=== PATIENT | male | born 1965 | race Caucasian/White ===

== ENCOUNTER 2019-07-31 12:57 | Outpatient (CLI) | payer BC, SELFPAY ==
[2019-07-31 13:49] LABS: Alanine Aminotransferase 22 U/L (4-50); Albumin Level 4.3 g/dL (3.5-5.1); Alkaline Phosphatase 87 U/L (38-126); Aspartate Amino Transferase 29 U/L (17-59); Bilirubin,Total 0.5 mg/dL (0.2-1.3); Blood Urea Nitrogen 20 mg/dL (9-20); Calcium 9.3 mg/dL (8.4-10.2); Carbon Dioxide 26 mmol/L (22-30); Chloride 98 mmol/L (98-107); Estimated Glomerular Filt Rate > 60; Glucose 114 mg/dL (75-110); Potassium 4.1 mmol/L (3.4-5.0); Sodium 133 mmol/L (137-145)
== END 2019-07-31 12:58 | disposition home or self-care (01) ==
LOC: ANHLAB 13:00
PROVIDERS: PCP Internal Medicine; Visit Provider Nurse Practitioner
DX: R19.7 Diarrhea, unspecified (principal)
CPT/HCPCS: 36415; 80053

== ENCOUNTER 2019-08-01 14:00 | Outpatient (CLI) | payer BC, SELFPAY ==
[2019-08-01 15:46] LABS: IFOB Positive Control Positive; Immunochemical Fecal Occult Bl Positive (N)
== END 2019-08-01 14:01 | disposition home or self-care (01) ==
PROVIDERS: PCP Internal Medicine; Visit Provider Nurse Practitioner
DX: R19.7 Diarrhea, unspecified (principal)
CPT/HCPCS: 82274; 87045; 87046; 87186; 87324; 87427

== ENCOUNTER 2019-12-09 09:32 | Outpatient (CLI) | payer BC, SELFPAY ==
[2019-12-09 10:09] LABS: Anion Gap 6 mmol/L (8-16); Blood Urea Nitrogen 18 mg/dL (9-20); Calcium 9.2 mg/dL (8.4-10.2); Carbon Dioxide 30 mmol/L (22-30); Chloride 101 mmol/L (98-107); Cholesterol 209 mg/dL (0-200); Estimated Glomerular Filt Rate > 60; Glucose 103 mg/dL (75-110); HDL Direct 42 mg/dL; Potassium 4.4 mmol/L (3.4-5.0); Sodium 137 mmol/L (137-145); Triglycerides 119 mg/dL (<150); Uric Acid 3.3 mg/dL (3.5-8.5)
[2019-12-09 10:20] LABS: LDL Cholesterol Direct 143 mg/dL
[2019-12-09 10:38] LABS: Prostate Specific Antigen 0.6 ng/mL (< OR = 4.0)
== END 2019-12-09 09:33 | disposition home or self-care (01) ==
PROVIDERS: PCP Internal Medicine; Visit Provider Internal Medicine
DX: M10.9 Gout, unspecified (principal); F10.10 Alcohol abuse, uncomplicated; Z12.5 Encounter for screening for malignant neoplasm of prostate; E78.5 Hyperlipidemia, unspecified; I10 Essential (primary) hypertension
CPT/HCPCS: 36415; 80048; 80061; 84153; 84550; G0103

== ENCOUNTER 2019-12-09 09:37 | Outpatient (CLI) | payer BC, SELFPAY ==
[2019-12-09 10:09] LABS: Alanine Aminotransferase 31 U/L (4-50); Aspartate Amino Transferase 32 U/L (17-59)
== END 2019-12-09 09:38 | disposition home or self-care (01) ==
PROVIDERS: PCP Internal Medicine
DX: Z79.899 Other long term (current) drug therapy (principal)
CPT/HCPCS: 36415; 84450; 84460

== ENCOUNTER 2019-12-31 09:55 | Outpatient (CLI) | payer BC, SELFPAY ==
[2019-12-31 11:05] LABS: Alanine Aminotransferase 22 U/L (4-50); Aspartate Amino Transferase 28 U/L (17-59)
== END 2019-12-31 09:56 | disposition home or self-care (01) ==
PROVIDERS: PCP Internal Medicine
DX: Z79.899 Other long term (current) drug therapy (principal)
CPT/HCPCS: 36415; 84450; 84460

== ENCOUNTER 2020-02-14 00:23 | Outpatient (CLI) | payer BC, SELFPAY ==
[2020-02-14 21:19] LABS: SARS-CoV-2 RNA PCR Negative
== END 2020-02-14 00:24 | disposition home or self-care (01) ==
LOC: ANHCOVIDDT 00:23
PROVIDERS: PCP Internal Medicine; Visit Provider Internal Medicine Gastroenterology
DX: Z01.812 Encounter for preprocedural laboratory examination (principal); Z20.828 Contact with and (suspected) exposure to other viral communicable diseases
CPT/HCPCS: 87635; C9803; U0003

== ENCOUNTER 2020-02-17 00:05 | Day surgery (SDC) | payer BC, SELFPAY ==
[2020-02-11 10:44] VITALS: BMI 27.4
--- NOTE | 2020-02-16 13:17 | WPDANESEPPF ---
Anes - Initial Pre Proc Eval Procedure: Operation Date: 02/17/20 10:15 Proposed Procedures p Screening Colonoscopy - Tay Rollins MD Date/Time: 02/16/20 13:17 Surgeon: Tay Rollins MD Pre Op Diagnosis: Family Hx Colon Ca Patient Data Age: 54 Gender: M Height: 1.7 m Weight: 79.5 kg Allergies Allergy/AdvReac Type Severity Reaction Status Date / Time cephalexin Allergy Intermediate HIVES Verified 02/17/20 09:02 Home Medications Medication Instructions Recorded Confirmed Type buspirone 10 mg tablet 10 mg PO DAILY 06/19/19 02/11/20 History lamotrigine 200 mg tablet 200 mg PO BID 06/19/19 02/11/20 History allopurinol 300 mg tablet 300 mg PO DAILY #90 tablet 09/29/19 02/11/20 Rx folic acid 1 mg tablet 1 mg PO DAILY #30 tablet 11/06/19 02/11/20 Rx thiamine HCl (vitamin B1) 100 mg 100 mg PO DAILY 11/06/19 02/11/20 History tablet naltrexone 50 mg tablet 50 mg PO DAILY 01/06/20 02/11/20 History peg 3350-electrolytes 236 240 ml PO Q10M #4000 ml 01/19/20 Rx gram-22.74 gram-6.74 gram-5.86 gram solution lisinopril 10 mg tablet 10 mg PO DAILY #90 tablet 02/16/20 Rx Patient hx anesthesia problems: none Family hx anesthesia problems: none PMFSH Past Medical History Medical History (Updated 02/16/20 @ 13:17 by Alejandro Pearson DO) Anxiety Bipolar disorder Essential (primary) hypertension Family history of colon cancer in father GERD without esophagitis Recovering alcoholic Screening for colon cancer Family History Family History Sibling Family history of tuberculosis Family history of alcoholism Mother Family history of mental disorder Father Family history of alcoholism Family history of chronic obstructive pulmonary disease Carcinoma of colon Patient's father is Social History Social History Smoking status: Never smoker Alcohol intake: former Alcohol use details: HAVEN'T HAD A DRINK IN 120 DAYS, HEAVY DRINKER IN PAST Substance use: current Substance use type: methamphetamine Last use: 2 WEEKS AGO Living arrangements: with family Spiritual care concerns: No Anes - Eval Final PreProcedure Day of Procedure 02/16/20 13:17 Patient weight: overweight Heart: regular rate and rhythm Lungs: clear to auscultation and normal air movement Airway: Mallampati scale class II Neurological: alert and oriented Last oral intake: >/= 8 hours ASA classification: III Emergent: no Anesthetic plan: proceed Anesthesia type and monitoring: general GIVS and standard monitoring Informed Consent: The patient's anesthetic plan and its attendant risks and benefits were discussed with the patient/family/POA. Questions were solicited and answers provided to the satisfaction of the patient/family/POA.
[2020-02-17 09:03] VITALS: BP 114/71; PULSE 86; RESP 16; TEMP 36.3; O2SAT 98; BMI 26.8
[2020-02-17] MEDS: LACTATED RINGERS 1,000 ML 150 ML IV CONT (09:14)
--- NOTE | 2020-02-17 10:19 | PM.HPGS ---
History of Present Illness History of Present Illness Consent: Risks, benefits, and alternatives have been discussed and questions answered. Patient agrees to proceed with procedure. Chief complaint: Family Hx Colon Ca Narrative: Elizabeth Martinez is a 54 year old male with last colonoscopy 5 years ago, father with colon cancer. Review of Systems Constitutional: Constitutional: Denies headache(s) and Denies weakness Eyes: Eyes: Denies blurry vision ENT: Reports Normal hearing present, Denies headache(s) and Denies neck pain Cardiovascular: Cardiovascular: Denies chest pain and Denies dyspnea Respiratory: Respiratory: Denies dyspnea Gastrointestinal: Gastrointestinal: Reports no additional gastrointestinal complaints Genitourinary: Genitourinary: Denies dysuria Musculoskeletal: Musculoskeletal: Denies neck pain Integumentary/Breasts: Skin/Breast: Denies dry skin Neurologic: Reports Normal hearing present, Denies headache(s) and Denies weakness Psychiatric: Psychiatric: Denies anxiety Endocrine: Endocrine: Denies change in body appearance Hematologic/Lymphatic: Hematologic/Lymphatic: Denies easy bleeding Allergic/Immunologic: Allergic/Immunologic: Denies urticaria PMF Past Medical History Medical History (Updated 02/16/20 @ 13:17 by Alejandro Pearson DO) Anxiety Bipolar disorder Essential (primary) hypertension Family history of colon cancer in father GERD without esophagitis Recovering alcoholic Screening for colon cancer Family History Family History Sibling Family history of tuberculosis Family history of alcoholism Mother Family history of mental disorder Father Family history of alcoholism Family history of chronic obstructive pulmonary disease Carcinoma of colon Patient's father is Social History Social History Smoking status: Never smoker Alcohol intake: former Alcohol use details: HAVEN'T HAD A DRINK IN 120 DAYS, HEAVY DRINKER IN PAST Substance use: current Substance use type: methamphetamine Last use: 2 WEEKS AGO Living arrangements: with family Spiritual care concerns: No Meds Home Medications and Allergies Home Medications Medication Instructions Recorded Confirmed Type buspirone 10 mg tablet 10 mg PO DAILY 06/19/19 02/11/20 History lamotrigine 200 mg tablet 200 mg PO BID 06/19/19 02/11/20 History allopurinol 300 mg tablet 300 mg PO DAILY #90 tablet 09/29/19 02/11/20 Rx folic acid 1 mg tablet 1 mg PO DAILY #30 tablet 11/06/19 02/11/20 Rx thiamine HCl (vitamin B1) 100 mg 100 mg PO DAILY 11/06/19 02/11/20 History tablet naltrexone 50 mg tablet 50 mg PO DAILY 01/06/20 02/11/20 History peg 3350-electrolytes 236 240 ml PO Q10M #4000 ml 01/19/20 Rx gram-22.74 gram-6.74 gram-5.86 gram solution lisinopril 10 mg tablet 10 mg PO DAILY #90 tablet 02/16/20 Rx Allergies Allergy/AdvReac Type Severity Reaction Status Date / Time cephalexin Allergy Intermediate HIVES Verified 02/17/20 09:02 Vital Signs Vital Signs - 24 hr 02/17/20 09:03 Temperature 97.4 F L Pulse Rate 86 Respiratory Rate 16 Blood Pressure 114/71 Pulse Oximetry 98 Exam Const: General: comfortable and no acute distress HENMT: General nose exam: Normal nares present Eyes: General: appearance normal, both eyes and all related structures Neck: Neck: no JVD Resp: Auscultation: clear to auscultation bilaterally Cardio: Rate: regular rate Rhythm: regular rhythm GI: Inspection: non-distended GI Palp: Yes Soft to palpation Skin: General skin exam: normal color Neuro: General: gait normal Speech: normal speech Extrem: General: normal to inspection Psych: Mental Status: mental status grossly normal Assessment and Plan Assessment and plan (1) Family history of colon cancer in father: Code(s): Z80.0 - Family h
[2020-02-17 10:35] VITALS: BP 85/57; PULSE 69; RESP 20; O2SAT 97
[2020-02-17 10:45] VITALS: BP 99/59; PULSE 64; RESP 20; O2SAT 99
[2020-02-17 10:55] VITALS: BP 105/68; PULSE 61; RESP 18; O2SAT 100
== END 2020-02-17 11:14 | disposition home or self-care (01) ==
PROVIDERS: PCP Internal Medicine; Visit Provider Internal Medicine Gastroenterology
PROC: 0DJD8ZZ Inspection of Lower Intestinal Tract, Via Natural or Artificial Opening Endoscopic (ICD-10-PCS; CPT 45378; principal; 2020-02-17 10:15)
DX: Z12.11 Encounter for screening for malignant neoplasm of colon (principal); K64.8 Other hemorrhoids; I10 Essential (primary) hypertension; K21.9 Gastro-esophageal reflux disease without esophagitis; F41.9 Anxiety disorder, unspecified; F31.9 Bipolar disorder, unspecified; F10.21 Alcohol dependence, in remission
CPT/HCPCS: 45378; J2704; J7120

== ENCOUNTER 2020-06-29 10:14 | Outpatient (CLI) | payer OTHER, SELFPAY ==
[2020-06-29 10:44] LABS: Alanine Aminotransferase 22 U/L (4-50); Albumin Level 4.2 g/dL (3.5-5.1); Alkaline Phosphatase 62 U/L (38-126); Anion Gap 5 mmol/L (8-16); Aspartate Amino Transferase 31 U/L (17-59); Bilirubin,Total 0.8 mg/dL (0.2-1.3); Blood Urea Nitrogen 21 mg/dL (9-20); Calcium 8.8 mg/dL (8.4-10.2); Carbon Dioxide 31 mmol/L (22-30); Chloride 105 mmol/L (98-107); Cholesterol 189 mg/dL (0-200); Estimated Glomerular Filt Rate > 60; Glucose 100 mg/dL (75-110); HDL Direct 40 mg/dL; Potassium 4.2 mmol/L (3.4-5.0); Sodium 141 mmol/L (137-145); Triglycerides 71 mg/dL (<150); Uric Acid 3.1 mg/dL (3.5-8.5)
[2020-06-29 10:52] LABS: LDL Cholesterol Direct 123 mg/dL
== END 2020-06-29 10:15 | disposition home or self-care (01) ==
PROVIDERS: PCP Internal Medicine; Visit Provider Nurse Practitioner
DX: E78.00 Pure hypercholesterolemia, unspecified (principal); M10.9 Gout, unspecified
CPT/HCPCS: 36415; 80053; 80061; 84550

== ENCOUNTER 2021-01-07 10:51 | Outpatient (CLI) | payer OTHER, SELFPAY ==
[2021-01-07 11:44] LABS: Anion Gap 3 mmol/L (8-16); Blood Urea Nitrogen 21 mg/dL (9-20); Calcium 9.7 mg/dL (8.4-10.2); Carbon Dioxide 34 mmol/L (22-30); Chloride 103 mmol/L (98-107); Cholesterol 177 mg/dL (0-200); Estimated Glomerular Filt Rate > 60; Glucose 99 mg/dL (65-110); HDL Direct 45 mg/dL; Potassium 4.8 mmol/L (3.4-5.0); Sodium 140 mmol/L (137-145); Triglycerides 69 mg/dL (<150)
[2021-01-07 11:55] LABS: LDL Cholesterol Direct 100 mg/dL
[2021-01-07 12:14] LABS: Prostate Specific Antigen 0.6 ng/mL (< OR = 4.0)
== END 2021-01-07 10:52 | disposition home or self-care (01) ==
LOC: ANHLAB 10:54
PROVIDERS: PCP Internal Medicine; Visit Provider Internal Medicine
DX: Z12.5 Encounter for screening for malignant neoplasm of prostate (principal); I10 Essential (primary) hypertension; E78.5 Hyperlipidemia, unspecified; Z79.899 Other long term (current) drug therapy
CPT/HCPCS: 36415; 80048; 80061; 84153; G0103

== ENCOUNTER 2022-06-20 09:29 | Outpatient (CLI) | payer OTHER, SELFPAY ==
[2022-06-20 10:33] LABS: Alanine Aminotransferase 29 U/L (6-50); Albumin Level 4.7 g/dL (3.5-5.1); Alkaline Phosphatase 68 U/L (38-126); Anion Gap 5 mmol/L (8-16); Aspartate Amino Transferase 30 U/L (17-59); Blood Urea Nitrogen 21 mg/dL (9-20); Calcium 9.1 mg/dL (8.4-10.2); Carbon Dioxide 31 mmol/L (22-30); Chloride 104 mmol/L (98-107); Cholesterol 195 mg/dL (0-200); Estimated Glomerular Filt Rate > 60; Glucose 92 mg/dL (65-110); HDL Direct 40 mg/dL; Potassium 4.5 mmol/L (3.4-5.0); Sodium 140 mmol/L (137-145); Triglycerides 79 mg/dL (<150); Uric Acid 4.5 mg/dL (3.5-8.5)
[2022-06-20 10:44] LABS: LDL Cholesterol Direct 130 mg/dL
[2022-06-20 10:53] LABS: Prostate Specific Antigen 0.4 ng/mL (< OR = 4.0)
== END 2022-06-20 09:30 | disposition home or self-care (01) ==
LOC: ANHLAB 09:30
PROVIDERS: PCP Internal Medicine; Visit Provider Nurse Practitioner
DX: Z00.00 Encounter for general adult medical examination without abnormal findings (principal); Z87.39 Personal history of other diseases of the musculoskeletal system and connective tissue; Z12.5 Encounter for screening for malignant neoplasm of prostate; E78.5 Hyperlipidemia, unspecified
CPT/HCPCS: 36415; 80053; 80061; 84153; 84443; 84550; G0103

== ENCOUNTER 2023-07-10 10:38 | Outpatient (CLI) | payer OTHER, SELFPAY ==
[2023-07-10 11:28] LABS: Basophils Absolute Auto 0.1 K/mm3 (0.0-0.1); Basophils Percent Auto 1.2 % (0.2-1.2); Eosinophils Absolute Auto 0.2 K/mm3 (0-0.3); Eosinophils Percent Auto 2.6 % (0-4.4); Hematocrit 44.7 % (42.0-52.0); Hemoglobin 14.6 g/dL (14.0-18.0); Immature Granulocyte Absolute 0.03 K/mm3 (0.00-0.031); Immature Granulocyte Percent A 0.4 % (0-0.5); Lymphocytes Absolute Auto 1.92 K/mm3 (0.9-3.2); Lymphocytes Percent Auto 26.6 % (18.3-44.2); Mean Corpuscular HGB Conc 32.7 g/dl (32-36); Mean Corpuscular Hemoglobin 30.6 pg (26-34); Mean Corpuscular Volume 93.7 fl (80-100); Mean Platelet Volume 9.1 fl (7.4-10.4); Monocytes Absolute Auto 0.6 K/mm3 (0.1-0.6); Monocytes Percent Auto 8.6 % (2.6-8.5); Neutrophils Absolute Auto 4.4 K/mm3 (1.3-6.7); Neutrophils Percent Auto 60.6 % (45.5-73.1); Platelet Count Result 223 k/mm3 (150-375); Red Blood Count 4.77 M/mm3 (4.6-6.20); Red Cell Distribution Width 13.6 % (11.5-14.5); White Blood Count 7.2 K/mm3 (4.5-10.0)
[2023-07-10 11:44] LABS: Alanine Aminotransferase 20 U/L (6-50); Albumin Level 4.4 g/dL (3.5-5.1); Alkaline Phosphatase 61 U/L (38-126); Anion Gap 5 mmol/L (4-12); Aspartate Amino Transferase 26 U/L (17-59); Bilirubin,Total 0.8 mg/dL (0.2-1.3); Blood Urea Nitrogen 23 mg/dL (9-20); Calcium 9.1 mg/dL (8.4-10.2); Carbon Dioxide 28 mmol/L (22-30); Chloride 107 mmol/L (98-107); Estimated Glomerular Filt Rate > 60; Glucose 102 mg/dL (65-110); Potassium 4.5 mmol/L (3.4-5.0); Sodium 140 mmol/L (137-145)
[2023-07-10 12:10] LABS: Prostate Specific Antigen 0.5 ng/mL (< OR = 4.0)
== END 2023-07-10 10:39 | disposition home or self-care (01) ==
LOC: ANHLAB 10:40
PROVIDERS: PCP Nurse Practitioner Family; Visit Provider Nurse Practitioner Family
DX: Z12.5 Encounter for screening for malignant neoplasm of prostate (principal); E51.9 Thiamine deficiency, unspecified; E78.00 Pure hypercholesterolemia, unspecified; F10.21 Alcohol dependence, in remission; F31.61 Bipolar disorder, current episode mixed, mild; I10 Essential (primary) hypertension
CPT/HCPCS: 36415; 80053; 84153; 85025; G0103

== ENCOUNTER 2024-07-14 09:28 | Outpatient (CLI) | payer OTHER, SELFPAY ==
[2024-07-14 09:57] LABS: Basophils Absolute Auto 0.1 K/mm3 (0.0-0.1); Basophils Percent Auto 0.9 % (0.2-1.2); Eosinophils Absolute Auto 0.2 K/mm3 (0-0.3); Eosinophils Percent Auto 3.3 % (0-4.4); Hematocrit 44.3 % (42.0-52.0); Hemoglobin 14.8 g/dL (14.0-18.0); Immature Granulocyte Absolute 0.02 K/mm3 (0.00-0.031); Immature Granulocyte Percent A 0.3 % (0-0.5); Lymphocytes Absolute Auto 1.89 K/mm3 (0.9-3.2); Lymphocytes Percent Auto 29.6 % (18.3-44.2); Mean Corpuscular HGB Conc 33.4 g/dl (32-36); Mean Corpuscular Hemoglobin 30.7 pg (26-34); Mean Corpuscular Volume 91.9 fl (80-100); Monocytes Absolute Auto 0.6 K/mm3 (0.1-0.6); Monocytes Percent Auto 9.4 % (2.6-8.5); Neutrophils Absolute Auto 3.6 K/mm3 (1.3-6.7); Neutrophils Percent Auto 56.5 % (45.5-73.1); Platelet Count Result 213 k/mm3 (150-375); Red Blood Count 4.82 M/mm3 (4.6-6.20); Red Cell Distribution Width 13.2 % (11.5-14.5); White Blood Count 6.4 K/mm3 (4.5-10.0)
[2024-07-14 10:12] LABS: Alanine Aminotransferase 22 U/L (6-50); Albumin Level 4.2 g/dL (3.5-5.1); Alkaline Phosphatase 62 U/L (38-126); Anion Gap 6 mmol/L (4-12); Aspartate Amino Transferase 24 U/L (17-59); Bilirubin,Total 0.7 mg/dL (0.2-1.3); Blood Urea Nitrogen 19 mg/dL (9-20); Carbon Dioxide 27 mmol/L (22-30); Chloride 105 mmol/L (98-107); Cholesterol 190 mg/dL (0-200); Estimated Glomerular Filt Rate > 60; Glucose 102 mg/dL (65-110); HDL Direct 38 mg/dL; Hemoglobin A1C 5.8 % (<5.7); Potassium 4.4 mmol/L (3.4-5.0); Sodium 138 mmol/L (137-145); Triglycerides 106 mg/dL (<150); Uric Acid 2.7 mg/dL (3.5-8.5)
--- OUTSIDE RECORDS SUMMARY | 2024-07-14 10:15 | XMS_ITS | Clinical Summary ---
Author Organization [facility] Address [address] [place] [address] Care Team Providers Care Shiatsu Therapist Name Role Phone Eloy Carpio MD Unavailable [phone] Celso Mitchell MD Unavailable [phone] Source Comments [facility],non-owned Affiliates and Associated Physician Practices is amultiple site organization consisting of ambulatory clinics and hospital sitesin [place], [place], [place] and [place]. This disclosure is being madepursuant to the Care Everywhere program and may not contain all information available regarding this patient. Last updated 17.[facility] Allergies No known active allergies Medications * Be aware that medications may not be up to date on this document. Alwaysverify current medications with the patient. diclofenac sodium (VOLTAREN) 75 MG tablet Take 1 Tab by mouth 2 times daily. 60 Tab 4 08/17/2010 Active diazepam (VALIUM) 2 MG tablet Take 1 Tab by mouth 3 times daily. 90 Tab 3 08/17/2010 Active CITALOPRAM & DIET MANAGE PROD PO daily. Active ARIPiprazole (ABILIFY PO) daily. 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 Gender Identity Not on file Sexual Orientation Not on file Last Filed Vital Signs Vital Sign Reading Time Taken Comments Blood Pressure - - Pulse - - Temperature - - Respiratory Rate - - Oxygen Saturation - - Inhaled Oxygen Concentration - - Weight 80.3 kg (177 lb) 09/19/2010 11:07 AM CDT Height 170.2 cm (5' 7 ) 09/19/2010 11:07 AM CDT Body Mass Index 27.72 09/19/2010 11:07 AM CDT Plan of Treatment Health Maintenance Due Date Last Done Comments COLOGUARD (AGES 45-75) - COL ON CA SCREENING 1964 COLON MONITORING 1964 COLONOSCOPY - COLON CA SCREENING 1964 CT COLONOGRAPHY - COLON CA SCREENING 1964 Colorectal Cancer Screening 1964 FIT - COLON CA SCREENING 1964 FLEX SIG - COLON CA SCREENING 1964 LIPID TESTING 1964 HIV SCREENING 10/07/1979 HEPATITIS C SCREENING 10/02/1982 DTAP/TDAP/TD VACCINES (1 - Tdap) 10/07/1983 HEPATITIS B VACCINE (1 of 3 - 19+ 3-dose series) 10/07/1983 PNEUMOCOCCAL VACCINE 50+ (1 of 1 - PCV) 2014 ZOSTER VACCINE (1 of 2) 2014 COVID-19 VACCINE (1 - 2023-2 5 season) 2023 DEPRESSION SCREENING 04/02/2024 INFLUENZA VACCINE (Season Ended) 2024 HIB VACCINE Aged Out No longer eligi ble based on patient's age to complete this topic HPV VACCINE Aged Out No longer eligi ble based on patient's age to complete this topic MENINGOCOCCAL (Group B) VACC INE SHARED DECISION-MAKING Aged Out No longer eligibl e based on patient's age to complete this topic MENINGOCOCCAL GROUPS A/C/Y/W VACCINE Aged Out No longer eligible b ased on patient's age to complete this topic Care Teams Shiatsu Therapist Relationship Specialty Start Date End Date Eloy Carpio MD Internal Medicine 08/17/10 Celso Mitchell MD Referring Physician Internal Medicine 08/17/10
--- OUTSIDE RECORDS SUMMARY | 2024-07-14 10:15 | XMS_ITS | Clinical Summary ---
Author Organization [facility] Address [address] [place] [address] Care Team Providers Care Hadoop Infrastructure Architect Name Role Phone Unavailable Primary Care Provider Unavailabl e Social History Tobacco Use Types Packs/Day Years Used Date Smoking Tobacco: Never Assessed Sex and Gender Information Value Date Recorded Sex Assigned at Not on file Legal Sex Male 5:42 PM CDT Gender Identity Not on file Sexual Orientation Not on file Plan of Treatment Health Maintenance Due Date Last Done Comments Colorectal Cancer Screening Colonoscopy (10 Years) 1964 Annual Physical 10/07/1967 Hepatitis C 1982 DTaP, Tdap and Td Vaccines ( 1 - Tdap) 10/07/1983 Zoster Vaccines (1 of 2) 2014 COVID-19 Vaccine (2023-2 5 season) 2023 Meningococcal B Vaccine Aged Out No l onger eligible based on patient's age to complete this topic Meningococcal Vaccine Aged Out No lizzie anthony eligible based on patient's age to complete this topic Pneumococcal Vaccine: Pediat rics (0 to 5 Years) and At-Risk Patients (6 to 49 Years) Aged Out No longer eligible b ased on patient's age to complete this topic RSV Immunizations Under 20 Months Aged Out No longer eligible based on patient's age to complete this topic
[2024-07-14 10:23] LABS: LDL Cholesterol Direct 125 mg/dL
== END 2024-07-14 09:29 | disposition home or self-care (01) ==
LOC: ANHLAB 09:29
PROVIDERS: PCP Nurse Practitioner Family; Visit Provider Nurse Practitioner Family
DX: M54.2 Cervicalgia (principal); E78.2 Mixed hyperlipidemia; M25.512 Pain in left shoulder; G89.29 Other chronic pain; I10 Essential (primary) hypertension; M10.9 Gout, unspecified; F31.61 Bipolar disorder, current episode mixed, mild; F10.10 Alcohol abuse, uncomplicated
CPT/HCPCS: 36415; 80053; 80061; 83036; 84550; 85025

== ENCOUNTER 2025-02-19 01:05 | Day surgery (SDC) | payer OTHER, SELFPAY ==
[2025-02-04 10:10] VITALS: BMI 28.3
--- OUTSIDE RECORDS SUMMARY | 2025-02-19 02:06 | XMS_ITS | Clinical Summary ---
Author Organization [facility] Address [address] [place] [address] Care Team Providers Care Manager Critical Care Unit Name Role Phone Unavailable Primary Care Provider [...] Td Vaccines ( 1 - Tdap) 10/07/1983 Pneumococcal Vaccine: 50+ Ye ars (1 of 1 - PCV) 2014 Zoster Vaccines (1 of 2) 2014 COVID-19 Vaccine ( - 2024-2 6 season) 2024 Influenza Adult (#1) 2024 RSV Immunization or 60+ Years (1 - 1-dose 75+ series) 10/07/2039 Hepatitis A Vaccines Aged Out No long er eligible based on patient's age to complete this topic Meningococcal B Vaccine Aged Out No l onger eligible based on patient's age to complete this topic Meningococcal Vaccine Aged Out No lizzie anthony eligible based on patient's age to complete this topic RSV Immunizations Under 20 Months Aged Out No longer eligible based on patient's age to complete this topic
--- OUTSIDE RECORDS SUMMARY | 2025-02-19 02:06 | XMS_ITS | Clinical Summary ---
Author Organization [facility] Address [address] [place] [address] Care Team Providers Care Orange Picking Supervisor Name Role Phone Eloy Carpio MD Unavailable [phone] Celso Mitchell MD Unavailable [phone] Source Comments [facility],non-owned Affiliates and Associated Physician Practices is amultiple site organization consisting of ambulatory clinics and hospital sitesin [place], [place], [place] and [place]. This disclosure is being madepursuant to the Care Everywhere program and may not contain all information available regarding this patient. 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 Gender Identity Not on file Sexual Orientation Not on file Last Filed Vital Signs Vital Sign Reading Time Taken Comments Blood Pressure - - Pulse - - Temperature - - Respiratory Rate - - Oxygen Saturation - - Inhaled Oxygen Concentration - - Weight 80.3 kg (177 lb) 09/19/2010 11:07 AM CDT Height 170.2 cm (5' 7) 09/19/2010 11:07 AM CDT Body Mass Index [...] 10/02/1982 DTAP/TDAP/TD VACCINES (1 - Tdap) 10/07/1983 PNEUMOCOCCAL VACCINE 50+ (1 of 1 - PCV) 2014 ZOSTER VACCINE (1 of 2) 2014 DEPRESSION SCREENING 04/02/2024 COVID-19 VACCINE (1 - 2024-2 6 season) 2024 INFLUENZA VACCINE (#1) 2024 Respiratory Syncytial Virus (RSV) Vaccine Pt: or over 60 yrs (1 - 1-dose 75+ series) 10/07/2039 HEPATITIS B VACCINE Aged Out No longe r eligible based on patient's age to complete this topic HIB VACCINE Aged Out No longer eligi [...] age to complete this topic Care Teams Orange Picking Supervisor Relationship Specialty Start Date End Date Eloy Carpio MD Internal Medicine 08/17/10 Celso Mitchell MD Referring Physician Internal Medicine 08/17/10
--- NOTE | 2025-02-19 11:27 | WPDANESEPPF ---
Anes - Initial Pre Proc Eval Procedure: Operation Date: 02/19/25 13:00 Proposed Procedures p Screening Colonoscopy - Tay Rollins MD Date/Time: 02/19/25 11:27 Surgeon: Tay Rollins MD Pre Op Diagnosis: Family Hx of malignant neoplasm of digestive organ Patient Data Age: 59 Gender: M Height: 1.7 m Weight: 82 kg Allergies Allergy/AdvReac Type Severity Reaction Status Date / Time cephalexin Allergy Intermediate HIVES Verified 02/04/25 10:07 Home Medications ?Medication ?Instructions ?Recorded ?Confirmed ?Type buspirone 10 mg tablet 10 mg PO DAILY 06/19/19 02/04/25 History naltrexone 50 mg tablet 50 mg PO DAILY 01/06/20 02/04/25 History multivitamin 1 tablet PO DAILY 01/12/21 02/04/25 History lamotrigine 200 mg tablet 300 mg PO DAILY 06/20/22 02/04/25 History (Lamictal) allopurinol 300 mg tablet See Rx Instructions .Route 10/22/24 02/04/25 Rx .COMPLEX #90 tabs lisinopril 10 mg tablet See Rx Instructions .Route 10/22/24 02/04/25 Rx .COMPLEX #90 tabs Patient hx anesthesia problems: none Family hx anesthesia problems: none Results Review: All pre-operative results and documents have been reviewed as part of the pre-operative evaluation. [facility] Past Medical History Medical History Bipolar disorder Anxiety Recovering alcoholic Family history of colon cancer in father Screening for colon cancer Essential (primary) hypertension GERD without esophagitis Surgical History Surgical History History of rotator cuff surgery right Family History Family History Sibling Family history of tuberculosis Family history of alcoholism Mother Family history of mental disorder Father Family history of alcoholism Family history of chronic obstructive pulmonary disease Carcinoma of colon Patient's father is Social History Social History Smoking status: Never smoker Second hand tobacco smoke exposure: No Alcohol intake: current Alcohol use details: Hx alcohol Substance use: former Substance use type: crack/cocaine and amphetamines Last use: 2 WEEKS AGO Do You Feel Safe in your Home?: Yes Lack of Transportation: No Lack of Food: Never True Current Housing: I Have Housing Concerned About Future Housing: No Difficulty Paying Gas/Electric Bills: No Difficulty Paying for Meds: No Currently Unemployed: No Education: Associate Degree Difficulty w/ Childcare or Family Care: No Living arrangements: with family Spiritual care concerns: No Agree to blood products: Yes Anes - Eval Final PreProcedure Day of Procedure 02/19/25 11:27 Patient weight: overweight Heart: regular rate and rhythm Lungs: clear to auscultation Airway: Mallampati scale class II Neurological: alert and oriented Last oral intake: >/= 8 hours ASA classification: III Emergent: no Anesthetic plan: proceed Anesthesia type and monitoring: general GIVS and standard monitoring Results Review: All pre-operative results and documents have been reviewed as part of the pre-operative evaluation. Informed Consent: The patient's anesthetic plan and its attendant risks and benefits were discussed with the patient/family/POA. Questions were solicited and answers provided to the satisfaction of the patient/family/POA.
[2025-02-19 11:32] VITALS: BP 93/64; PULSE 86; RESP 18; TEMP 36.8; O2SAT 98
[2025-02-19] MEDS: LACTATED RINGERS 1,000 ML 150 ML IV CONT (12:00)
--- NOTE | 2025-02-19 12:44 | PM.HPGS ---
History of Present Illness History of Present Illness Consent: Risks, benefits, and alternatives have been discussed and questions answered. Patient agrees to proceed with procedure. Chief complaint: Family Hx of malignant neoplasm of digestive organ Narrative: Elizabeth Martinez is a 59 year old male with last colonoscopy 5 years ago, father with colon cancer. Review of Systems Review of Systems: All systems reviewed & are unremarkable except as noted in HPI and below PMFSH Past Medical History Medical History Bipolar disorder Anxiety Recovering alcoholic Family history of colon cancer in father Screening for colon cancer Essential (primary) hypertension GERD without esophagitis Surgical History Surgical History History of rotator cuff surgery right Family History Family History Sibling Family history of tuberculosis Family history of alcoholism Mother Family history of mental disorder Father Family history of alcoholism Family history of chronic obstructive pulmonary disease Carcinoma of colon Patient's father is Social History Social History Smoking status: Never smoker Second hand tobacco smoke exposure: No Alcohol intake: current Alcohol use details: Hx alcohol Substance use: former Substance use type: crack/cocaine and amphetamines Last use: 2 WEEKS AGO Do You Feel Safe in your Home?: Yes Lack of Transportation: No Lack of Food: Never True Current Housing: I Have Housing Concerned About Future Housing: No Difficulty Paying Gas/Electric Bills: No Difficulty Paying for Meds: No Currently Unemployed: No Education: Associate Degree Difficulty w/ Childcare or Family Care: No Living arrangements: with family Spiritual care concerns: No Agree to blood products: Yes Meds Home Medications and Allergies Home Medications ?Medication ?Instructions ?Recorded ?Confirmed ?Type buspirone 10 mg tablet 10 mg PO DAILY 06/19/19 02/19/25 History naltrexone 50 mg tablet 50 mg PO DAILY 01/06/20 02/19/25 History multivitamin 1 tablet PO DAILY 01/12/21 02/19/25 History lamotrigine 200 mg tablet 300 mg PO DAILY 06/20/22 02/19/25 History (Lamictal) allopurinol 300 mg tablet See Rx Instructions .Route 10/22/24 02/19/25 Rx .COMPLEX #90 tabs lisinopril 10 mg tablet See Rx Instructions .Route 10/22/24 02/19/25 Rx .COMPLEX #90 tabs Allergies Allergy/AdvReac Type Severity Reaction Status Date / Time cephalexin Allergy Intermediate HIVES Verified 02/04/25 10:07 Vital Signs Vital Signs - 24 hr 02/19/25 11:32 Temperature 98.2 F Pulse Rate 86 Respiratory Rate 18 Blood Pressure 93/64 L Pulse Oximetry 98 Oxygen Delivery Room Air Exam Const: General: comfortable and no acute distress HENMT: Face/Nose/Sinus: Normal nares present Eyes: General: appearance normal, both eyes and all related structures Resp: Auscultation: clear to auscultation bilaterally Cardio: Rate: regular rate Rhythm: regular rhythm GI: Inspection: non-distended GI Palp: Yes Soft to palpation Skin: General skin exam: normal color Extrem: General: normal to inspection Psych: Mental Status: mental status grossly normal Assessment and Plan Assessment and plan (1) Family history of colon cancer in father: Code(s): Z80.0 - Family history of malignant neoplasm of digestive organs Status: Acute Assessment and Plan: colonoscopy
[2025-02-19 12:58] VITALS: BP 74/54; PULSE 72; RESP 20; O2SAT 99
[2025-02-19 13:06] VITALS: BP 90/65; PULSE 78; RESP 20; O2SAT 99
[2025-02-19 13:08] VITALS: BP 92/60; PULSE 64; RESP 18; O2SAT 99
[2025-02-19 13:18] VITALS: BP 107/65; PULSE 61; RESP 19; O2SAT 100
== END 2025-02-19 13:32 | disposition home or self-care (01) ==
PROVIDERS: PCP Nurse Practitioner Family; Referring Provider Nurse Practitioner Family; Visit Provider Internal Medicine Gastroenterology
PROC: 0DJD8ZZ Inspection of Lower Intestinal Tract, Via Natural or Artificial Opening Endoscopic (ICD-10-PCS; CPT 45378; principal; 2025-02-19 13:00)
DX: Z12.11 Encounter for screening for malignant neoplasm of colon (principal); K64.8 Other hemorrhoids; Z80.0 Family history of malignant neoplasm of digestive organs
CPT/HCPCS: 45378; J2003; J2704; J7120